=== PATIENT | male | born 1945 | race Caucasian/White ===

== ENCOUNTER 2017-08-01 10:16 | Outpatient (CLI) | payer MEDICARE ==
[~2017-08-01 10:16] MED LIST: ASPI-845 PO; ATOR10TA70 PO; MULT-1074 PO; SOLI5TAB2 PO; [UNRECOGNIZED DRUG - OTHER] PO
[2017-08-01 11:23] LABS: BASOPHILS % (AUTO) 0.1 % (0-1); EOSINOPHILS # (AUTO) 0.4 X10'3 (0-0.9); EOSINOPHILS % (AUTO) 7.1 % (0-6); HEMATOCRIT 44.8 % (42.0-52.0); HEMOGLOBIN 15.2 g/dl (14.0-17.9); LYMPHOCYTES % (AUTO) 33.3 % (21-51); MEAN CORPUSCULAR HEMOGLOBIN 31.4 PG (27.0-31.0); MEAN CORPUSCULAR HGB CONC 33.9 % (33.0-36.5); MEAN CORPUSCULAR VOLUME 92.7 FL (78-98); MONOCYTES # (AUTO) 0.5 X10'3 (0-0.9); MONOCYTES % (AUTO) 7.6 % (2-12); NEUTROPHILS # (AUTO) 3.1 X10'3 (1.8-7.7); NEUTROPHILS % (AUTO) 51.9 % (42-75); PLATELET COUNT 194 X10'3 (140-440); RED BLOOD COUNT 4.83 X10'6 (4.70-6.10); RED CELL DISTRIBUTION WIDTH 13.4 % (11.5-14.5)
[2017-08-01 11:34] LABS: CLARITY,URINE CLOUDY (Clear); COLOR,URINE YELLOW (Yellow); GLUCOSE, URINE NEGATIVE (Neg); KETONES,URINE NEGATIVE (Neg); LEUKOCYTE ESTERASE ,URINE TRACE (Neg); NITRITES, URINE NEGATIVE (Neg); OCCULT BLOOD,URINE LARGE (Neg); PH,URINE 5.5 (4.8-8.0); PROTEIN,URINE NEGATIVE (Neg); UROBILINOGEN,URINE 0.2 E.U/dL (0.2-1.0)
[2017-08-01 11:36] LABS: UA COLLECTION TYPE CLN CATCH MIDSTREAM
[2017-08-01 11:45] LABS: MUCUS STRANDS FEW /LPF (Neg); RBC,URINE TNTC /HPF (0-2); SQUAMOUS EPITHELIAL CELL,UR FEW /LPF (FEW)
[2017-08-01 11:46] LABS: ALANINE AMINOTRANSFERASE 30 U/L (12-78); ALBUMIN 3.4 G/DL (3.4-5.0); ALKALINE PHOSPHATASE 77 IU/L (46-116); ANION GAP 7 (8-16); ASPARTATE AMINO TRANSFERASE 17 U/L (10-37); BACTERIA,URINE FEW /HPF (Neg); BILIRUBIN,TOTAL 0.6 MG/DL (0.1-1.0); BLOOD UREA NITROGEN 15 MG/DL (7-18); BUN/CREATININE RATIO 14.4 (5.4-32.0); CALCIUM 9.1 MG/DL (8.5-10.1); CHLORIDE 107 MMOL/L (99-107); CREATININE 1.04 MG/DL (0.60-1.10); GLUCOSE 100 MG/DL (70-104); POTASSIUM 4.2 MMOL/L (3.5-5.1); SODIUM 141 MMOL/L (135-145); TOTAL CARBON DIOXIDE 26.9 MMOL/L (24-32); TOTAL PROTEIN 6.9 G/DL (6.4-8.2); eGFR 70 ML/MIN
[2017-08-01 11:48] LABS: INR 1.1 INR; PROTHROMBIN TIME 11.3 SECONDS (9.0-12.0)
== END 2017-08-01 23:59 | disposition home or self-care (01) ==
LOC: LAB 10:16
PROVIDERS: ATTEND Specialist
DX: Z01.818 Encounter for other preprocedural examination (principal); Z51.81 Encounter for therapeutic drug level monitoring; N39.0 Urinary tract infection, site not specified
CPT/HCPCS: 36415; 80053; 81001; 85025; 85610; 87070; 87077; 87088; 87186

== ENCOUNTER 2017-09-09 08:08 | Inpatient (IN) | payer MEDICARE ==
[~2017-09-09] VITALS: Ht 182.9 cm; Wt 136.1 kg
[~2017-09-09 08:08] MED LIST changes: -ASPI-845 PO; +FLO0.4C PO; -MULT-1074 PO; -[UNRECOGNIZED DRUG - OTHER] PO; +acetaminophen 325mg tablet PO ONE; +ceFAZolin inj. 3,000 MG in normal saline 100ml IV soln 100 ML IV ONE; +famotidine 20mg tablet PO ONE; +gabapentin 300mg capsule PO ONE; +oxyCODONE SR 10mg (sust. release) tab PO ONE; +ringers solution, lacted 1,000 ML IV SCH; +tranexamic acid inj. 1,000 MG in normal saline 100ml IV soln 90 ML IV ONE
[2017-09-09 08:15] VITALS: BP 129/87
[2017-09-09] MEDS ORDERED: bacitracin inj 150,000 UNIT in sodium chloride irrig. sol 3,000 ML IR ONE (09:00)
== END 2017-09-09 09:30 | disposition home or self-care (01) | DRG 554 ==
LOC: PAS IN 08:08 → EDSTATUS 10:15
PROVIDERS: ADMIT Specialist; ATTEND Specialist
DX: M17.12 Unilateral primary osteoarthritis, left knee (principal); Z68.41 Body mass index [BMI] 40.0-44.9, adult; E66.9 Obesity, unspecified; G47.30 Sleep apnea, unspecified; M21.162 Varus deformity, not elsewhere classified, left knee; Z53.09 Procedure and treatment not carried out because of other contraindication; Z96.651 Presence of right artificial knee joint; Z87.442 Personal history of urinary calculi; Z79.899 Other long term (current) drug therapy
CPT/HCPCS: 87070; J0690; J7030; J7120

== ENCOUNTER 2017-09-23 07:10 | Inpatient (IN) | payer MEDICARE ==
[~2017-09-23] VITALS: Ht 182.9 cm; Wt 139.9 kg
[2017-09-23] VITALS (18 sets, daily range): BP systolic 89–129; BP diastolic 37–77
[2017-09-23] MEDS ORDERED: bacitracin inj 150,000 UNIT in sodium chloride irrig. sol 3,000 ML IR ONE (09:00)
[2017-09-23] MEDS ORDERED: ROPIVAcaine 0.5% (5mg/ml) 30ml vial ONE ×2 (09:36→09:54)
[2017-09-23] MEDS ORDERED: tetracaine 1% (10mg/ml) pres. free inj. ONE (09:54)
[2017-09-23] MEDS ORDERED: cloNIDine hcl/PF 100mcg/ml inj ONE (09:54)
[2017-09-23] MEDS ORDERED: fentaNYL/PF 50MCG/1 ML 2ML syringe ONE (10:04)
[2017-09-23] MEDS ORDERED: MORPHINE SULFATE/PF 0.5 MG/ML 10ML AMPUL ONE (10:04)
[2017-09-23] MEDS ORDERED: MIDAZolam 5mg/ml 2ml vial ONE (10:04)
[2017-09-23] MEDS ORDERED: propofol inj 20 ML IV ONE ×2 (10:32→10:36)
[2017-09-23] MEDS ORDERED: naloxone 2mg/2ml inj 2 MG in normal saline 500ml IV soln 500 ML IV PRN (11:21)
[2017-09-23] MEDS ORDERED: ringers solution, lacted 1,000 ML IV SCH (11:21)
[2017-09-23] MEDS ORDERED: morphine 2 MG/ML inj. syringe IV PRN ×2 (11:25)
[2017-09-23] MEDS ORDERED: ondansetron/PF 4mg/2ml inj IV PRN ×3 (11:25→12:35)
[2017-09-23] MEDS ORDERED: diphenhydrAMINE 50 mg/ml inj IV PRN (11:25)
[2017-09-23] MEDS ORDERED: proCHLORperazine 10 MG/2 ml inj IV PRN (11:25)
[2017-09-23] MEDS ORDERED: meperidine/PF 50mg/ml syringe IV PRN ×3 (11:25)
[2017-09-23] MEDS ORDERED: ceFAZolin 1000mg inj ONE (12:18)
[2017-09-23] MEDS ORDERED: HYDROmorphone inj. 0.5 MG/0.5 ML DISP.SYRIN IV PRN (12:35)
[2017-09-23] MEDS ORDERED: magnesium hydroxide 30ml (MOM) UD suspension PO PRN (12:35)
[2017-09-23] MEDS ORDERED: diphenhydrAMINE 25mg capsule PO PRN ×2 (12:35)
[2017-09-23] MEDS ORDERED: acetaminophen 325mg tablet PO PRN (12:35)
[2017-09-23] MEDS ORDERED: bisacodyl 10mg suppository rectal RC PRN (12:35)
[2017-09-23] MEDS: gabapentin 300mg capsule PO SCH ×2 (15:00→20:54)
[2017-09-23] MEDS: acetaminophen 325mg tablet PO SCH ×2 (16:00→20:54)
[2017-09-23] MEDS: cefazolin 1gm/NS 100mL 100 ML IV SCH ×2 (16:41→23:56)
[2017-09-23] MEDS: potassium cl 20mEq in 1/2 NS 1,000 ML IV SCH ×2 (16:41→20:32)
[2017-09-23] MEDS: tamsulosin 0.4mg capsule PO SCH (20:53)
[2017-09-23] MEDS: sennosides 8.6mg tablet PO SCH (20:54)
[2017-09-23] MEDS: celeCOXIB 100mg capsule PO SCH (20:54)
[2017-09-23] MEDS: atorvastatin 10mg tablet PO SCH (20:54)
[2017-09-23] MEDS: ascorbic acid 500mg tablet PO SCH (20:54)
[2017-09-24] VITALS (8 sets, daily range): BP systolic 83–111; BP diastolic 41–62
[2017-09-24] MEDS: acetaminophen 325mg tablet PO SCH ×4 (02:00→21:09)
[2017-09-24] MEDS: potassium cl 20mEq in 1/2 NS 1,000 ML IV SCH (02:29)
[2017-09-24] MEDS ORDERED: NORMAL SALINE IV ONE (02:40)
[2017-09-24] MEDS ORDERED: normal saline 500ml IV soln 250 ML IV ONE (03:00)
[2017-09-24] MEDS: oxyCODONE IR 5mg (immed. release) tablet PO PRN ×4 (03:03→21:09)
[2017-09-24 05:45] LABS: BASOPHILS % (AUTO) 0.2 % (0-1); EOSINOPHILS # (AUTO) 0.2 X10'3 (0-0.9); EOSINOPHILS % (AUTO) 2.3 % (0-6); HEMATOCRIT 35.1 % (42.0-52.0); HEMOGLOBIN 12.2 g/dl (14.0-17.9); LYMPHOCYTES # (AUTO) 1.3 X10'3 (1.1-4.8); LYMPHOCYTES % (AUTO) 15.3 % (21-51); MEAN CORPUSCULAR HEMOGLOBIN 32.3 PG (27.0-31.0); MEAN CORPUSCULAR HGB CONC 34.9 % (33.0-36.5); MEAN CORPUSCULAR VOLUME 92.5 FL (78-98); MEAN PLATELET VOLUME 6.9 FL (7.4-10.4); MONOCYTES # (AUTO) 0.9 X10'3 (0-0.9); MONOCYTES % (AUTO) 10.6 % (2-12); NEUTROPHILS # (AUTO) 6.2 X10'3 (1.8-7.7); NEUTROPHILS % (AUTO) 71.6 % (42-75); PLATELET COUNT 144 X10'3 (140-440); RED BLOOD COUNT 3.79 X10'6 (4.70-6.10); RED CELL DISTRIBUTION WIDTH 13.4 % (11.5-14.5); WHITE BLOOD COUNT 8.7 X10'3 (4.5-11.0)
[2017-09-24 05:54] LABS: INR 1.1 INR; PROTHROMBIN TIME 11.7 SECONDS (9.0-12.0)
[2017-09-24 06:00] LABS: ANION GAP 7 (8-16); CHLORIDE 106 MMOL/L (99-107); POTASSIUM 4.4 MMOL/L (3.5-5.1); SODIUM 140 MMOL/L (135-145); TOTAL CARBON DIOXIDE 26.8 MMOL/L (24-32)
[2017-09-24] MEDS: multivitamins, therapeutics tablet PO SCH (07:54)
[2017-09-24] MEDS: ascorbic acid 500mg tablet PO SCH ×2 (07:54→21:08)
[2017-09-24] MEDS: celeCOXIB 100mg capsule PO SCH ×2 (07:55→21:08)
[2017-09-24] MEDS: gabapentin 300mg capsule PO SCH ×3 (07:55→21:08)
[2017-09-24] MEDS ORDERED: tamsulosin 0.4mg capsule PO SCH (08:00)
[2017-09-24] MEDS ORDERED: warfarin 10mg tablet PO ONE (10:00)
[2017-09-24] MEDS: atorvastatin 10mg tablet PO SCH (21:08)
[2017-09-24] MEDS: tamsulosin 0.4mg capsule PO SCH (21:08)
[2017-09-24] MEDS: sennosides 8.6mg tablet PO SCH (21:08)
[2017-09-25] MEDS: acetaminophen 325mg tablet PO SCH ×2 (02:00→07:35)
[2017-09-25] MEDS: oxyCODONE IR 5mg (immed. release) tablet PO PRN ×2 (05:44→10:42)
[2017-09-25 06:45] LABS: BASOPHILS % (AUTO) 0.4 % (0-1); EOSINOPHILS # (AUTO) 0.6 X10'3 (0-0.9); HEMATOCRIT 36.5 % (42.0-52.0); HEMOGLOBIN 12.9 g/dl (14.0-17.9); LYMPHOCYTES # (AUTO) 1.4 X10'3 (1.1-4.8); LYMPHOCYTES % (AUTO) 17.1 % (21-51); MEAN CORPUSCULAR HEMOGLOBIN 32.2 PG (27.0-31.0); MEAN CORPUSCULAR HGB CONC 35.2 % (33.0-36.5); MEAN CORPUSCULAR VOLUME 91.4 FL (78-98); MONOCYTES # (AUTO) 0.9 X10'3 (0-0.9); MONOCYTES % (AUTO) 10.8 % (2-12); NEUTROPHILS # (AUTO) 5.4 X10'3 (1.8-7.7); NEUTROPHILS % (AUTO) 64.7 % (42-75); PLATELET COUNT 138 X10'3 (140-440); RED CELL DISTRIBUTION WIDTH 13.7 % (11.5-14.5); WHITE BLOOD COUNT 8.4 X10'3 (4.5-11.0)
[2017-09-25 06:50] LABS: INR 1.1 INR; PROTHROMBIN TIME 11.8 SECONDS (9.0-12.0)
[2017-09-25] MEDS: gabapentin 300mg capsule PO SCH (07:33)
[2017-09-25] MEDS: ascorbic acid 500mg tablet PO SCH (07:33)
[2017-09-25] MEDS: multivitamins, therapeutics tablet PO SCH (07:33)
[2017-09-25] MEDS: celeCOXIB 100mg capsule PO SCH (07:34)
[2017-09-25 08:17] VITALS: BP 119/63
[2017-09-25] MEDS ORDERED: ASPI-1264 PO (09:28)
[2017-09-25] MEDS ORDERED: warfarin 10mg tablet PO ONE (10:00)
[2017-09-25] MEDS ORDERED: acetaminophen 325mg tablet PO PRN (12:35)
== END 2017-09-25 11:34 | disposition home or self-care (01) | DRG 470 ==
LOC: PAS IN 07:10 → EDSTATUS 10:00 → ORTHO 4S 14:11 → EDSTATUS 09-24 07:30
PROVIDERS: ADMIT Specialist; ATTEND Specialist
PROC: 3E0T3BZ Introduction of Anesthetic Agent into Peripheral Nerves and Plexi, Percutaneous Approach (ICD-10-PCS; 2017-09-23)
PROC: 0SRD0J9 Replacement of Left Knee Joint with Synthetic Substitute, Cemented, Open Approach (ICD-10-PCS; principal; 2017-09-23 10:01)
DX: M17.12 Unilateral primary osteoarthritis, left knee (principal); I95.9 Hypotension, unspecified; D62 Acute posthemorrhagic anemia; Z68.41 Body mass index [BMI] 40.0-44.9, adult; G47.30 Sleep apnea, unspecified; E78.5 Hyperlipidemia, unspecified; N40.0 Benign prostatic hyperplasia without lower urinary tract symptoms; E66.9 Obesity, unspecified; Z96.651 Presence of right artificial knee joint; Z79.899 Other long term (current) drug therapy
CPT/HCPCS: 36415; 73560; 80051; 85025; 85610; 94760; 97110; 97116; 97162; 97530; A6449; A6455; A7000; C1713; C1758; C1776; J0690; J0735; J2250; J2274; J2405; J2704; J2795; J3010; J7030; J7120

== ENCOUNTER 2018-08-29 08:26 | Day surgery (SDC) | payer MEDICARE ==
[2018-08-22 12:13] LABS: BASOPHILS # (AUTO) 0.1 X10'3 (0-0.2); BASOPHILS % (AUTO) 1.1 % (0-1); EOSINOPHILS # (AUTO) 0.4 X10'3 (0-0.9); LYMPHOCYTES # (AUTO) 1.9 X10'3 (1.1-4.8); LYMPHOCYTES % (AUTO) 33.1 % (21-51); MEAN CORPUSCULAR HGB CONC 34.6 % (33.0-36.5); MEAN CORPUSCULAR VOLUME 92.3 FL (78-98); MONOCYTES # (AUTO) 0.4 X10'3 (0-0.9); MONOCYTES % (AUTO) 6.8 % (2-12); PRE OP HEMATOCRIT 44.3 % (42.0-52.0); PRE OP HEMOGLOBIN 15.4 g/dL (14.0-17.9); PRE OP PLATELET COUNT 194 X10'3 (140-440)
[2018-08-22 12:28] LABS: ALBUMIN 3.4 G/DL (3.4-5.0); ALKALINE PHOSPHATASE 80 IU/L (46-116); BLOOD UREA NITROGEN 15 MG/DL (7-18); BUN/CREATININE RATIO 15.8 (5.4-32.0); CALCIUM 8.7 MG/DL (8.5-10.1); CHLORIDE 106 MMOL/L (99-107); CREATININE 0.95 MG/DL (0.60-1.10); PRE OP ALT 32 U/L (30-65); PRE OP ANION GAP 6 (8-16); PRE OP AST 17 U/L (10-37); PRE OP BILIRUB, TOTAL 0.4 MG/DL (0.0-1.0); PRE OP GLUCOSE 106 MG/DL (70-104); PRE OP SODIUM 140 MMOL/L (135-145); TOTAL PROTEIN 6.7 G/DL (6.4-8.2); eGFR 77 ML/MIN
[~2018-08-29] VITALS: Ht 182.9 cm; Wt 143.0 kg
[~2018-08-29 08:26] MED LIST changes: +ASPI-1265 PO; -FLO0.4C PO; +IBUP200C5 PO; +LIDOcaine 1% 30ml preserv. free vial ONE; -acetaminophen 325mg tablet PO ONE; -gabapentin 300mg capsule PO ONE; +meperidine/PF 25mg/ml syringe IV PRN; +morphine 4 MG/ML inj SYRINge IV PRN; +ondansetron/PF 4mg/2ml inj IV PRN; -oxyCODONE SR 10mg (sust. release) tab PO ONE; +proCHLORperazine 10 MG/2 ml inj IV PRN; -tranexamic acid inj. 1,000 MG in normal saline 100ml IV soln 90 ML IV ONE
[2018-08-29] MEDS ORDERED: fentaNYL/PF 50MCG/1 ML 2ML syringe ONE (09:40)
[2018-08-29] MEDS ORDERED: MIDAZolam 5mg/5ml vial ONE (09:41)
[2018-08-29] MEDS ORDERED: ketorolac trometh. 30mg/ml inj. ONE ×2 (09:42→10:06)
[2018-08-29] MEDS ORDERED: BUPIVAcaine/PF 2.5mg/ml (0.25%) 10ml vial ONE (09:51)
[2018-08-29 10:33] VITALS: BP 152/72
--- NOTE | 2018-08-29 10:33 | NUR ---
Received from OR via JESSIE , accompanied by Anesthesiologist JOHN and report given by Anesthesiolgist. LEFT WRIST DRESSING IS CDI. PATIENT WITH 20G PIV IN RIGHT HAND RUNNING LR AT 100. PATIENT VSS. Addendum: 08/29/18 at 1044 by Iglesia Nunes RN RN Amended: Links added.
[2018-08-29 10:43] VITALS: BP 145/79
[2018-08-29 10:53] VITALS: BP 138/80
--- NOTE | 2018-08-29 11:03 | NUR ---
ALL DC CRITERIA HAS BEEN MET. IV TAKEN OUT WITHOUT COMPLICATIONS. ALL INSTRUCTIONS COVERED AND ALL QUESTIONS ANSWERED. DRESSINGS CDI. OUT VIA WHEELCHAIR TO PERSONAL VEHICLE WHERE PATIENT WAS SECURED IN AND DRIVEN HOME BY FAMILY. Addendum: 08/29/18 at 1124 by Iglesia Nunes RN, RN Amended: Links added.
[2018-08-29 13:02] VITALS: BP 132/87
[2018-08-29 13:10] VITALS: BP 132/87
== END 2018-08-29 11:03 | disposition home or self-care (01) ==
LOC: PAS 08:26
PROVIDERS: ATTEND Orthopaedic Surgery Hand Surgery
DX: G56.03 Carpal tunnel syndrome, bilateral upper limbs (principal); Z96.653 Presence of artificial knee joint, bilateral; Z79.899 Other long term (current) drug therapy; Z79.82 Long term (current) use of aspirin; Z87.442 Personal history of urinary calculi
CPT/HCPCS: 29848; 36415; 80053; 85025; 93005; A6449; J0690; J1885; J2250; J3010; J3490; A7000; J7030; J7120

== ENCOUNTER 2018-10-01 08:00 | Outpatient (CLI) | payer MEDICARE ==
[~2018-10-01 08:00] MED LIST changes: -LIDOcaine 1% 30ml preserv. free vial ONE; -ceFAZolin inj. 3,000 MG in normal saline 100ml IV soln 100 ML IV ONE; -famotidine 20mg tablet PO ONE; -meperidine/PF 25mg/ml syringe IV PRN; -morphine 4 MG/ML inj SYRINge IV PRN; -ondansetron/PF 4mg/2ml inj IV PRN; -proCHLORperazine 10 MG/2 ml inj IV PRN; -ringers solution, lacted 1,000 ML IV SCH
== END 2018-10-01 08:05 | disposition home or self-care (01) ==
LOC: PRE-OP 08:00 → EDSTATUS 10-03 11:30
PROVIDERS: ATTEND Orthopaedic Surgery Hand Surgery
DX: G56.01 Carpal tunnel syndrome, right upper limb (principal)

== ENCOUNTER 2018-12-26 06:05 | Day surgery (SDC) | payer MEDICARE ==
[2018-12-18 10:37] LABS: BASOPHILS % (AUTO) 0.9 % (0-1); EOSINOPHILS # (AUTO) 0.3 X10'3 (0-0.9); EOSINOPHILS % (AUTO) 6.3 % (0-6); LYMPHOCYTES # (AUTO) 1.8 X10'3 (1.1-4.8); LYMPHOCYTES % (AUTO) 34.2 % (21-51); MEAN CORPUSCULAR HEMOGLOBIN 31.8 PG (27.0-31.0); MEAN CORPUSCULAR HGB CONC 34.4 g/dL (33.0-36.5); MEAN CORPUSCULAR VOLUME 92.5 FL (78-98); MEAN PLATELET VOLUME 6.9 FL (7.4-10.4); MONOCYTES # (AUTO) 0.5 X10'3 (0-0.9); MONOCYTES % (AUTO) 9.2 % (2-12); NEUTROPHILS # (AUTO) 2.6 X10'3 (1.8-7.7); NEUTROPHILS % (AUTO) 49.4 % (42-75); PRE OP HEMATOCRIT 44.1 % (42.0-52.0); PRE OP HEMOGLOBIN 15.2 g/dL (14.0-17.9); PRE OP PLATELET COUNT 187 X10'3 (140-440); RED BLOOD COUNT 4.77 X10'6 (4.70-6.10); RED CELL DISTRIBUTION WIDTH 14.2 % (11.5-14.5)
[2018-12-18 11:09] LABS: ALBUMIN 3.4 G/DL (3.4-5.0); ALKALINE PHOSPHATASE 81 IU/L (46-116); BLOOD UREA NITROGEN 16 MG/DL (7-18); BUN/CREATININE RATIO 16.5 (5.4-32.0); CALCIUM 9.1 MG/DL (8.5-10.1); CHLORIDE 108 MMOL/L (99-107); CREATININE 0.97 MG/DL (0.60-1.10); PRE OP ALT 40 U/L (30-65); PRE OP ANION GAP 5 (8-16); PRE OP AST 18 U/L (10-37); PRE OP BILIRUB, TOTAL 0.4 MG/DL (0.0-1.0); PRE OP GLUCOSE 113 MG/DL (70-104); PRE OP SODIUM 142 MMOL/L (135-145); TOTAL CARBON DIOXIDE 28.9 MMOL/L (24-32); TOTAL PROTEIN 6.7 G/DL (6.4-8.2); eGFR 76 ML/MIN
[~2018-12-26] VITALS: Ht 182.9 cm; Wt 140.6 kg
[~2018-12-26 06:05] MED LIST changes: -IBUP200C5 PO; +LIDOcaine 1% (10mg/ml) 2ml vial ONE
[2018-12-26 06:10] VITALS: BP 140/83
[2018-12-26] MEDS ORDERED: famotidine 20mg tablet PO ONE (06:15)
[2018-12-26] MEDS ORDERED: cefazolin/dext.iso 2gm/100ml 100 ML IV ONE (06:15)
[2018-12-26] MEDS ORDERED: ringers solution, lacted 1,000 ML IV SCH (06:15)
[2018-12-26] MEDS ORDERED: BUPIVAcaine/PF 2.5mg/ml (0.25%) 10ml vial ONE ×2 (06:41→08:04)
[2018-12-26] MEDS ORDERED: LIDOcaine 0.5% (5mg/ml) 50ml vial ONE (07:15)
[2018-12-26] MEDS ORDERED: fentaNYL/PF 50MCG/1 ML 2ML syringe ONE (08:17)
[2018-12-26] MEDS ORDERED: midazolam 2 mg/2 ml injection ONE (08:18)
[2018-12-26] MEDS ORDERED: propofol inj 20 ML IV ONE (08:42)
[2018-12-26 08:45] VITALS: BP 148/62
--- NOTE | 2018-12-26 08:45 | NUR ---
Received from OR via bed, accompanied by Anesthesiologist. Report received. Initial physical assessment done and recorded.
[2018-12-26 08:55] VITALS: BP 115/70
[2018-12-26 09:05] VITALS: BP 121/72
[2018-12-26 09:15] VITALS: BP 120/67
[2018-12-26 09:25] VITALS: BP 112/66
--- NOTE | 2018-12-26 09:30 | NUR ---
Discharged home in good condition. No complaints of pain during post op period, no pain meds given no complaintsDischarge criteria met, discharge instructions given, demonstrates verbal understanding.
== END 2018-12-26 09:30 | disposition home or self-care (01) ==
LOC: PAS 06:05
PROVIDERS: ATTEND Orthopaedic Surgery Hand Surgery
DX: G56.01 Carpal tunnel syndrome, right upper limb (principal); G47.30 Sleep apnea, unspecified; Z79.899 Other long term (current) drug therapy; Z98.890 Other specified postprocedural states; Z96.653 Presence of artificial knee joint, bilateral; Z79.82 Long term (current) use of aspirin; Z87.442 Personal history of urinary calculi
CPT/HCPCS: 29848; 36415; 80053; 82948; 85025; 93005; J0690; J2001; J2250; J2704; J3010; J3490; A6449; A7000; J7120

== ENCOUNTER 2020-10-24 07:57 | Day surgery (SDC) | payer MEDICARE ==
[~2020-10-24] VITALS: Ht 182.9 cm; Wt 136.0 kg
[~2020-10-24 07:57] MED LIST changes: -LIDOcaine 1% (10mg/ml) 2ml vial ONE
[2020-10-24] MEDS ORDERED: MIDAZolam 1 MG/ML 5ML VIAL ONE (08:10)
[2020-10-24] MEDS ORDERED: fentaNYL/PF 50MCG/1 ML 2ML syringe ONE (08:10)
[2020-10-24 08:15] VITALS: BP 127/81
[2020-10-24] MEDS ORDERED: METF-436 PO (08:47)
[2020-10-24 09:28] VITALS: BP 137/79
[2020-10-24 09:38] VITALS: BP 140/88
[2020-10-24 09:48] VITALS: BP 129/83
[2020-10-24 09:58] VITALS: BP 131/73
== END 2020-10-24 10:00 | disposition home or self-care (01) ==
LOC: GI LAB 07:57
PROVIDERS: ATTEND Specialist
DX: Z12.11 Encounter for screening for malignant neoplasm of colon (principal); D12.0 Benign neoplasm of cecum; D12.3 Benign neoplasm of transverse colon; K57.30 Diverticulosis of large intestine without perforation or abscess without bleeding; K64.8 Other hemorrhoids; K63.89 Other specified diseases of intestine; G47.33 Obstructive sleep apnea (adult) (pediatric); Z86.16 Personal history of COVID-19
CPT/HCPCS: 45380; 45385; 99153; C1773; G0500; J2250; J3010; J7040; 99152; A4620

== ENCOUNTER 2021-12-05 11:37 | Day surgery (SDC) | payer MEDICARE ==
[2021-12-05] VITALS (8 sets, daily range): BP systolic 126–142; BP diastolic 82–126
[~2021-12-05] VITALS: Ht 182.9 cm; Wt 140.1 kg
[~2021-12-05 11:37] MED LIST changes: +METF-436 PO
[2021-12-05] MEDS ORDERED: CEPH-585 PO (12:08)
[2021-12-05] MEDS ORDERED: FLO0.4C PO (12:08)
[2021-12-05 12:57] LABS: BASOPHILS # (AUTO) 0.1 X10'3 (0-0.2); BASOPHILS % (AUTO) 0.9 % (0-1); EOSINOPHILS # (AUTO) 0.3 X10'3 (0-0.9); EOSINOPHILS % (AUTO) 5.5 % (0-6); HEMATOCRIT 38.8 % (42.0-52.0); LYMPHOCYTES # (AUTO) 1.6 X10'3 (1.1-4.8); LYMPHOCYTES % (AUTO) 24.7 % (21-51); MEAN CORPUSCULAR HEMOGLOBIN 30.6 PG (27.0-31.0); MEAN CORPUSCULAR HGB CONC 33.7 g/dL (33.0-36.5); MEAN CORPUSCULAR VOLUME 90.9 FL (78-98); MONOCYTES # (AUTO) 0.6 X10'3 (0-0.9); MONOCYTES % (AUTO) 9.3 % (2-12); NEUTROPHILS # (AUTO) 3.8 X10'3 (1.8-7.7); NEUTROPHILS % (AUTO) 59.6 % (42-75); PLATELET COUNT 232 X10'3 (140-440); RED BLOOD COUNT 4.26 X10'6 (4.70-6.10); RED CELL DISTRIBUTION WIDTH 13.8 % (11.5-14.5); WHITE BLOOD COUNT 6.3 X10'3 (4.5-11.0)
[2021-12-05 13:00] LABS: ALBUMIN 3.2 G/DL (3.4-5.0); ANION GAP 9 (8-16); BLOOD UREA NITROGEN 17 MG/DL (7-18); BUN/CREATININE RATIO 15.3 (5.4-32.0); CALCIUM 8.9 MG/DL (8.5-10.1); CHLORIDE 109 MMOL/L (99-107); CREATININE 1.11 MG/DL (0.60-1.10); GLUCOSE 112 MG/DL (70-104); POTASSIUM 3.9 MMOL/L (3.5-5.1); SODIUM 144 MMOL/L (135-145); TOTAL CARBON DIOXIDE 25.9 MMOL/L (24-32); eGFR 64 ML/MIN
[2021-12-05 13:02] LABS: APTT 28 SECONDS (22-32)
[2021-12-05] MEDS ORDERED: LORazepam 0.5 MG tablet PO PRN (13:30)
[2021-12-05] MEDS ORDERED: normal saline 1,000 ML IV SCH (13:30)
[2021-12-05] MEDS ORDERED: diphenhydrAMINE 25mg capsule PO PRN (13:30)
[2021-12-05] MEDS ORDERED: iohexol 350 MG/1 ML 200ml bottle ONE (14:37)
[2021-12-05] MEDS ORDERED: midazolam 1 mg/ML 2ml injection ONE (14:37)
[2021-12-05] MEDS ORDERED: nitroGLYCERIN-Tridil 50MG/D5W 250 ML IV ONE (14:37)
[2021-12-05] MEDS ORDERED: heparin 1,000unit/ml 10ml vial 10 ML ONE (14:37)
[2021-12-05] MEDS ORDERED: fentaNYL/PF 50MCG/1 ML 2ML syringe ONE (14:37)
[2021-12-05] MEDS ORDERED: verapamil 2.5 mg/ml inj IV ONE (14:37)
[2021-12-05] MEDS ORDERED: LIDOCAINE 1% w/preservative (10 MG/ML) inj. 10mL VIAL ONE (14:37)
[2021-12-05] MEDS ORDERED: HYDROcodone/acetaminophen 10/325mg tab PO PRN (16:50)
[2021-12-05] MEDS ORDERED: HYDROcodone/acetaminophen 5mg/325mg tablet PO PRN (16:50)
[2021-12-06 06:14] LABS: ISTAT Hct MIX 36 %PCV (42-52); ISTAT O2 SATURATION MIX VENOUS 72 % (60-80); ISTAT SOURCE VEN
[2021-12-06 08:08] LABS: ISTAT HGB ART 12.2 g/dl (14.0-18.0); ISTAT Hct ART 36 %PCV (42-52); ISTAT O2 SATURATION ARTERIAL 97 % (95-98); ISTAT SOURCE ART
== END 2021-12-05 19:05 | disposition home or self-care (01) ==
LOC: SSTAY O 11:37
PROVIDERS: ATTEND Internal Medicine Interventional Cardiology
DX: I35.0 Nonrheumatic aortic (valve) stenosis (principal); I44.0 Atrioventricular block, first degree; G47.33 Obstructive sleep apnea (adult) (pediatric); E78.5 Hyperlipidemia, unspecified; Z79.84 Long term (current) use of oral hypoglycemic drugs; Z79.899 Other long term (current) drug therapy; Z79.01 Long term (current) use of anticoagulants; Z88.8 Allergy status to other drugs, medicaments and biological substances
CPT/HCPCS: 36415; 80048; 82803; 82948; 85014; 85025; 85610; 85730; 93005; 93456; 99152; 99153; C1751; C1769; C1894; J1644; J2250; J3010; J3490; J7030; Q0163; Q9967; A4620; A5120

== ENCOUNTER 2023-07-17 18:27 | Emergency (ER) | payer MEDICARE ==
[~2023-07-17] VITALS: Ht 180.3 cm; Wt 140.0 kg
[~2023-07-17 18:27] MED LIST changes: +ASPI-1071 PO; -ASPI-1265 PO
[2023-07-17 18:47] VITALS: TEMP 98.3
[2023-07-17] MEDS ORDERED: acetaminophen 325mg tablet PO ONE (20:00)
[2023-07-17 20:53] LABS: BASOPHILS # (AUTO) 0.1 X10'3 (0-0.2); BASOPHILS % (AUTO) 0.6 % (0-1); EOSINOPHILS # (AUTO) 0.3 X10'3 (0-0.9); EOSINOPHILS % (AUTO) 3.1 % (0-6); HEMATOCRIT 42.2 % (42.0-52.0); HEMOGLOBIN 14.1 g/dl (14.0-17.9); LYMPHOCYTES % (AUTO) 23.6 % (21-51); MEAN CORPUSCULAR HGB CONC 33.5 g/dL (33.0-36.5); MEAN CORPUSCULAR VOLUME 95.6 FL (78-98); MEAN PLATELET VOLUME 7.7 FL (7.4-10.4); MONOCYTES # (AUTO) 1.1 X10'3 (0-0.9); MONOCYTES % (AUTO) 12.2 % (2-12); NEUTROPHILS # (AUTO) 5.2 X10'3 (1.8-7.7); NEUTROPHILS % (AUTO) 60.5 % (42-75); PLATELET COUNT 130 X10'3 (140-440); RED BLOOD COUNT 4.41 X10'6 (4.70-6.10); RED CELL DISTRIBUTION WIDTH 14.2 % (11.5-14.5); WHITE BLOOD COUNT 8.6 X10'3 (4.5-11.0)
[2023-07-17 21:05] LABS: ALANINE AMINOTRANSFERASE 28 U/L (12-78); ALBUMIN 3.5 G/DL (3.4-5.0); ALBUMIN/GLOBULIN RATIO 1.1 (1.1-1.5); ALKALINE PHOSPHATASE 66 IU/L (46-116); ANION GAP 8 (8-16); ASPARTATE AMINO TRANSFERASE 21 U/L (10-37); BILIRUBIN,TOTAL 0.7 MG/DL (0.1-1.0); BLOOD UREA NITROGEN 15 MG/DL (7-18); BUN/CREATININE RATIO 13.6 (10.0-20.0); C-REACTIVE PROTEIN 1.69 MG/DL (0.0-0.5); CALCIUM 8.9 MG/DL (8.5-10.1); CHLORIDE 106 MMOL/L (99-107); GLUCOSE 106 MG/DL (70-104); POTASSIUM 4.5 MMOL/L (3.5-5.1); SODIUM 142 MMOL/L (135-145); TOTAL CARBON DIOXIDE 27.6 MMOL/L (24-32); TOTAL PROTEIN 6.7 G/DL (6.4-8.2); eCRCL 58 ML/MIN; eGFR 65 ML/MIN
[2023-07-17] MEDS ORDERED: LIDOcaine 1% 30ml preserv. free vial IJ STA (21:19)
[2023-07-17 23:15] LABS: APPEARANCE,SYNOVIAL FLUID HAZY; COLOR,SYNOVIAL FLUID YELLOW
[2023-07-17 23:19] LABS: SYN RBC 1685 /CU MM (0); SYN WBC 155 /CU MM (0-200)
[2023-07-17 23:30] LABS: LYMPHOCYTES,SYNOVIAL FLUID 9 % (0-75); MONOCYTES,SYNOVIAL FLUID 6 % (0-0); NEUTROPHILS,SYNOVIAL FLUID 87 % (0-25)
[2023-07-18 01:08] VITALS: BP 148/89; PULSE 84; RESP 16; O2SAT 94
[2023-07-18 01:28] LABS: SYNOVIAL FLUID CRYSTALS QT FEW
[2023-07-18 01:31] LABS: CRYSTAL ID, SYN FLD URIC ACID
== END 2023-07-18 01:12 | disposition home or self-care (01) ==
LOC: ER 18:28
DX: M25.562 Pain in left knee (principal); M25.462 Effusion, left knee; E78.00 Pure hypercholesterolemia, unspecified; G89.29 Other chronic pain; Z87.442 Personal history of urinary calculi; Z79.82 Long term (current) use of aspirin; Z79.899 Other long term (current) drug therapy; Z96.653 Presence of artificial knee joint, bilateral
CPT/HCPCS: 20610; 20611; 36415; 73560; 80053; 85025; 85651; 86140; 87015; 87070; 89051; 89060; 99284; A6449